=== PATIENT | male | born 1990 | race Caucasian/White ===

== ENCOUNTER 2016-07-24 07:19 | Emergency (ER) | payer OTHER ==
--- NOTE | 2016-07-24 09:14 | ER Document Report ---
ED Allergic Reaction - General Chief Complaint: Hives Stated Complaint: RASH,NAUSEA Mode of Arrival: Ambulatory Information source: Patient TRAVEL OUTSIDE OF THE [place] IN LAST 30 DAYS: No - HPI Onset: Last week Onset/Duration: Gradual, Intermittent Quality of pain: No pain Severity: Moderate Associated symptoms: Lightheaded Recently seen / treated by doctor: Yes Notes: Patient arrives with complaints of rash. Patient reports he was bit by a tick in his left bicep area on [place] proxim[place] 3 weeks ago. [place] for 2 weeks. He finished his doxycycline approximately one week ago. Since finishing his doxycycline he has had fatigue as well as intermittent red itchy rash. This morning rash seemed to be worse and he was feeling somewhat lightheaded and came in to be evaluated. He complains of nausea, denies any vomiting or diarrhea. No abdominal pain. No chest pain or shortness of breath. He does report some generalized joint pain. He denies any difficulty breathing or swallowing. He denies any headache, blurred vision, numbness or weakness. No fever. No chest pain or shortness of breath. He denies any new soaps, detergents, lotions. He did finish doxycycline recently. - Related Data Allergies/Adverse Reactions: amoxicillin [Amoxicillin] Allergy (Verified 08/13/13 20:26) Penicillins Allergy (Verified 08/13/13 20:26) Past Medical History - Social History Smoking Status: Former Smoker Family History: None Patient has suicidal ideation: No Patient has homicidal ideation: No Pulmonary Medical History: Reports: Hx Pneumonia Renal/ Medical History: Denies: Hx Peritoneal Dialysis Musculoskeltal Medical History: Reports Hx Musculoskeletal Deformity, Reports Hx Musculoskeletal Trauma Traumatic Medical History: Reports: Hx Fractures Past Surgical History: Reports: Hx Orthopedic Surgery - L ankle and R shoulder surgery - Immunizations Immunizations up to date: Yes Hx Diphtheria, Pertussis, Tetanus Vaccination: Yes Review of Systems - Review of Systems -: Yes All other systems reviewed and negative Physical Exam - Vital signs Vitals: Temp Pulse Resp BP Pulse Ox 98.1 F 97 18 113/77 98 07/24/16 07:34 07/24/16 07:34 07/24/16 07:34 07/24/16 07:34 07/24/16 07:34 Interpretation: Normal - General General appearance: Appears well - HEENT Head: Normocephalic Eyes: Normal Conjunctiva: Normal Cornea: Normal Mouth/Lips: Normal Mucous membranes: Normal Pharynx: Normal Neck: Normal - Respiratory Respiratory status: No respiratory distress Breath sounds: Normal. No: Rhonchi, Stridor, Wheezing - Cardiovascular Rhythm: Regular Heart sounds: Normal auscultation Murmur: No - Abdominal Inspection: Normal Distension: No distension Tenderness: Nontender - Back Back: Normal - Extremities General upper extremity: Normal inspection, Nontender, Normal color, Normal ROM , Normal temperature General lower extremity: Normal inspection, Nontender, Normal color, Normal ROM , Normal temperature, Normal weight bearing. No: Aleah's sign Notes: No joint swelling, no redness. - Neurological Neuro grossly intact: Yes Cognition: Normal Orientation: AAOx4 Speech: Normal Motor strength normal: LUE, RUE, LLE, RLE - Psychological Associated symptoms: Normal affect, Normal mood - Skin Skin Color: Normal Irregularity with: Other - Patient is known to have generalized redness to the back and chest. He has urticarial type lesions to the arms and legs. No target lesions noted. The rash blanches easily. There is no petechiae or purpura noted. No vesicles. Site of tick bite to the left biceps shows no erythema migrans. Course - Re-evaluation Re-evalutation: 07/24/16 09:18 Patient is nontoxic with stable vitals. The patient was bit by a tick to the left bicep 3 weeks ago. He was seen by his medical clinic on the [facility] and was placed on doxycycline for 2 weeks. He now has an intermittent rash with complaints of fatigue and nausea and feeling somewhat lightheaded. No sign of [place] spotted fever. There is no erythema migrans. The patient was already treated for Lyme disease. Lyme titers will be obtained. Patient will be discharged home on steroids with instructions to continue taking antihistamines. Follow up with the [facility] if not better in the next 5 days, sooner for worsening symptoms, difficulty breathing, petechial type rash, or any further concerns. 07/24/16 09:19 - Vital Signs Vital signs: Temp Pulse Resp BP Pulse Ox 98.1 F 97 18 113/77 98 07/24/16 07:34 07/24/16 07:34 07/24/16 07:34 07/24/16 07:34 07/24/16 07:34 Discharge - Discharge Clinical Impression: Urticaria Condition: Stable Disposition: HOME, SELF-CARE Instructions: Acute Urticaria ([facility]) Additional Instructions: Take medications as prescribed. Continue taking antihistamines such as Benadryl for itching. Follow-up with the [facility] at the next available appointment for recheck. Follow-up sooner for worsening symptoms including worsening rash, purple rash around the ankles or hands, severe headache, high fever, passing out, or any further concerns. Prescriptions: Prednisone 60 mg PO DAILY #15 tablet
[2016-07-24 09:31] VITALS: BP 105/56
[2016-07-26 08:30] LABS: LYME DISEASE IGG AND IGM AB <0.91 ISR (0.00-0.90)
== END 2016-07-24 09:30 | disposition home or self-care (01) ==
LOC: ER 07:19
DX: L50.9 Urticaria, unspecified (principal); R53.83 Other fatigue; R42 Dizziness and giddiness; R11.0 Nausea; M25.50 Pain in unspecified joint; Z88.0 Allergy status to penicillin; Z87.891 Personal history of nicotine dependence
CPT/HCPCS: 36415; 86617; 86618; 99283